=== PATIENT | male | born 1955 | race Caucasian/White ===

== ENCOUNTER 2021-07-16 15:20 | Observation (INO) | payer MEDICARE ==
[~2021-07-16] VITALS: Ht 182.9 cm; Wt 94.0 kg
--- NOTE | 2021-07-16 15:20 | NUR ---
PATIENT TO ROOM 6 VIA EMS BEDSIDE TRIAGE COMPLETED
[2021-07-16 15:49] LABS: HEMATOCRIT 39.6 % (39.0-50.0); HEMOGLOBIN 13.6 g/dl (14.0-18.0); IMMATURE GRANULOCYTES 0.3 % (0.0-5.0); MEAN CELL VOLUME 88.2 fL CALC (80.0-100.0); MEAN CORPUSCULAR HGB 30.3 pG CALC (26.0-32.0); MEAN CORPUSCULAR HGB CONC 34.3 g/dL CAL (32.0-36.0); NEUT# 4.15 thou/uL (1.82-7.42); RED BLOOD COUNT 4.49 mill/uL (4.70-6.10); RED CELL DISTRI WIDTH 12.6 % (11.5-15.5)
[2021-07-16 16:19] LABS: ALBUMIN 4.3 g/dL (3.2-5.0); ALKALINE PHOSPHATASE 54 u/l (38-126); AMYLASE 68 u/l (30-110); ANION GAP 19 (6-22 (CALC)); BILIRUBIN, TOTAL 1.1 mg/dL (0.0-1.4); BUN 21 mg/dL (8-23); BUN/CREATININE RATIO 20 (12-20 (CALC)); CARBON DIOXIDE 18 mmol/l (22-30); CHLORIDE 97 mmol/l (95-108); GFR > 60 ML/MIN (>=60 (CALC)); GFR FOR AFR.AMER. > 60 ML/MIN (>=60 (CALC)); POTASSIUM 2.8 mmol/l (3.5-5.1); SGOT/AST 38 u/l (19-48); SODIUM 132 mmol/l (137-146)
[2021-07-16 16:27] LABS: ACT PARTIAL THROMBO TIME 24.1 SECONDS (20.0-32.5); INTERNATIONAL NORMALIZED RATIO 0.9 RATIO (0.7-1.3); PROTHROMBIN TIME 9.9 SECONDS (9.0-12.5)
--- NOTE | 2021-07-16 17:59 | NUR ---
RESPS EVEN AND UNLABORED ON O2 VIA NC. MONITORS ATTACHED. DENIES NEEDS AT THIS TIME.
[2021-07-16] MEDS ORDERED: JANUMET1 TA1 PO (18:32)
[2021-07-16] MEDS ORDERED: ZYLOPRIM100 MG PO (18:33)
[2021-07-16] MEDS ORDERED: GLIMEPIRIDE2 MG PO (18:33)
[2021-07-16] MEDS ORDERED: ASPIRIN81 MG PO (18:35)
[2021-07-16] MEDS ORDERED: TOPROL XL50 MG PO (18:35)
[2021-07-16] MEDS ORDERED: MOBIC15 MG PO (18:35)
[2021-07-16] MEDS ORDERED: CRESTOR40 MG PO (18:36)
[2021-07-16] MEDS ORDERED: NORVASC PO (18:36)
[2021-07-16] MEDS ORDERED: B121000 MC1 PO (18:37)
[2021-07-16] MEDS ORDERED: AVAPRO150 MG PO (18:37)
[2021-07-16] MEDS ORDERED: VITAMIN C500 M1 PO (18:37)
[2021-07-16] MEDS ORDERED: VITAMIN D PO (18:38)
[2021-07-16] MEDS ORDERED: CHLORTHALIDONE25 MG PO (18:39)
--- NOTE | 2021-07-16 18:52 | NUR ---
REPORT GIVEN TO RUTH SCOTT
--- NOTE | 2021-07-16 19:00 | NUR ---
REPORT RECEIVED FROM TEA SCOTT. CARE ASSUMED OF PT.
--- NOTE | 2021-07-16 19:15 | NUR ---
IV ANTIBIOTICS INTIATED PER ORDER, PT TOLERATING WELL. DISCUSSED OF ADMISSION TO FLOOR, VERBALIZED UNDERSTANDING. DENIES ANY NEEDS. STREET SPRINKLER IN PLACE. CALL LIGHT WTIHIN REACH.
--- NOTE | 2021-07-16 19:40 | NUR ---
REPORT CALLED TO ANTONIETA SCOTT ON [facility]
--- NOTE | 2021-07-16 19:50 | NUR ---
Admission Note Report Given to: ANTONIETA RN Transported by: Wheelchair X Stretcher Transported with: X Nurse Transporter X Patent IV X O2 X Loom Checker Location: ICU X [facility] PT TRANSPORTED TO [facility] IN STABLE CONDITION ACCOMPANIED BY SWEATER AND PTS ID.
[2021-07-16 19:51] VITALS: BP 154/84
--- NOTE | 2021-07-16 20:30 | NUR ---
PATIENT ADMITTED FROM ER VIA STRETCHER WITH ER STAFF IN ATTENDANCE. PATIENT TRANSFERRED INTO BED. UNSTEADY ON HIS FEET. PATIENT ADMITTED FOR SYNCOPE, FALL AT HOME, COVID PNEUMONIA. PATIENT IS AWAKE ALERT AND ORIENTEDX3. PATIENT STATES THAT [place] IN [facility] BUT IS HERE BECAUSE HIS IS HERE CARING FOR HER ELDERLY MOTHER AND ALSO HAS COVID. PCP IS OUT OF TOWN. PATIENT STATES THAT HE IS A DIAB ON ORAL MEDS AT HOME. PATIENT WITH IV SITE TO RIGHT WRIST AND LAC. BOTH SITES ARE HEALTHY AT THIS TIME WITH GOOD BLOOD RETURN. TELE MONITOR IN PLACE WITH READING OF SR-81 AT THIS TIME. O2 VIA NASAL CANNULA IN PLACE WITH O2 AT 2LPM-O2 SAT IS 97%. LUNGS ARE DIMINISHED. NON-PRODUCTIVE COUGH NOTED. LAST BM WAS YESTERDAY 07/15/21. ABD IS SOFT WITH BS+. NO PERIPHERAL EDEMA NOTED WITH PULSES WEAK. DENIES ANY PROBLEM WITH URINATION. INSTRUCTED WE NEED A SPEC WHEN HE WAS ABLE TO PROVIDE. PROVIDED PATIENT WITH HEALTHY CHOICE TURKEY DINNER AND DIET COLA. ORIENTED PATIENT TO ROOM AND SURROIUNDINGS. INSTRUCTED ON USE OF NURSE CALL LIGHT SYSTEM, TV REMOTE ANBD PHONE. SAFETY PRECAUTIONS REINFORCED. CALL LIGHT IN REACH. WILL CONT TO MONITOR.
--- NOTE | 2021-07-16 21:43 | NUR ---
PATIENT RESTING IN BED-C/O LEFT SHOULDER PAIN-MEDICATED WITH TYLENOL 650MG PO FOR 5/10 PAIN SCALE. ACCU-CHECK WAS 232-MEDICATED PER [employer] PROTOCOL. STILL HASN'T VOIDED-INSTRUCTED THAT WE DO NEED URINE SPEC WHEN HE IS ABLE TO PROVIDE. SAFETY PRECAUTIONS REINFORCED. CALL LIGHT IN REACH. WILL CONT TO MONITOR.
[2021-07-16 23:54] LABS: URINE BILIRUBIN - DIPSTICK NEGATIVE (NEGATIVE); URINE BLOOD DIPSTICK SMALL (NEGATIVE); URINE COLOR YELLOW; URINE GLUCOSE - DIPSTICK 250 mg/dL (NEGATIVE); URINE KETONE 40 mg/dL (NEGATIVE); URINE LEUK ESTERASE NEGATIVE (NEGATIVE); URINE PROTEIN - DIPSTICK 30 mg/dL (NEG-TRACE)
[2021-07-16 23:56] LABS: URINE NITRITE - DIPSTICK NEGATIVE (Negative)
[2021-07-17] VITALS: BP 118/62
[2021-07-17 00:07] LABS: URINE SQUAMOUS EPITHELIAL CELL FEW EPI/hpf (0-FEW); URINE WBC 0-2 WBC/hpf (0-5)
--- NOTE | 2021-07-17 00:08 | NUR ---
PATIENT RESTING IN BED. VOIDED DARK MARKUS URINE AND URINE SPEC WAS OBTAINED AND SENT TO LAB. O2 VIA NASAL CANNULA IN PLACE. TELE MONITOR IN PLACE-LAST READING WAS SR-64. CALL LIGHT IN REACH. WILL CONT TO MONITOR.
[2021-07-17 04:00] VITALS: BP 156/99
--- NOTE | 2021-07-17 04:34 | NUR ---
PATIENT RESTING IN BED AT THIS TIME. EYES ARE CLOSED AND RESPS ARE EVEN AND UNLABVORED. O2 VIA NASAL CANNULA IN PLACE AT 2LPM. TELE MONITOR IN PLACE. CALL LIGHT IN REACH. WILL CONT TO MONITOR.
[2021-07-17 05:53] LABS: HEMATOCRIT 37.6 % (39.0-50.0); HEMOGLOBIN 13.4 g/dl (14.0-18.0); IMMATURE GRANULOCYTES 0.2 % (0.0-5.0); MEAN CELL VOLUME 86.8 fL CALC (80.0-100.0); MEAN CORPUSCULAR HGB 30.9 pG CALC (26.0-32.0); MEAN CORPUSCULAR HGB CONC 35.6 g/dL CAL (32.0-36.0); NEUT# 3.05 thou/uL (1.82-7.42); RED BLOOD COUNT 4.33 mill/uL (4.70-6.10); RED CELL DISTRI WIDTH 12.6 % (11.5-15.5)
[2021-07-17 06:22] LABS: ALBUMIN 3.9 g/dL (3.2-5.0); ALKALINE PHOSPHATASE 55 u/l (38-126); BILIRUBIN, TOTAL 0.8 mg/dL (0.0-1.4); BUN 21 mg/dL (8-23); BUN/CREATININE RATIO 28 (12-20 (CALC)); C-REACTIVE PROTEIN 8.5 mg/dL (0-0.9); CARBON DIOXIDE 20 mmol/l (22-30); CHLORIDE 99 mmol/l (95-108); CREATININE 0.8 mg/dL (0.7-1.3); GFR > 60 ML/MIN (>=60 (CALC)); GFR FOR AFR.AMER. > 60 ML/MIN (>=60 (CALC)); SGOT/AST 32 u/l (19-48); SODIUM 132 mmol/l (137-146); TOTAL PROTEIN 7.1 g/dL (6.3-8.2)
[2021-07-17 06:27] LABS: ANION GAP 17 (6-22 (CALC)); POTASSIUM 3.5 mmol/l (3.5-5.1)
[2021-07-17 07:30] VITALS: BP 129/84
--- NOTE | 2021-07-17 07:30 | NUR ---
BEDSIDE REPORT RECEIVED AT CHANGE OF SHIFT. SITTING UP IN BED WATHCING TV. NO COMPLAINTS. ASSESSMENT PERFORMED. SCDS PLACED. TEACH AND TRAIN INCENTIVE SPIROMETRY USE. NO COMPLAINTS/DISTRESS AT THIS TIME WILL MONITOR.
[2021-07-17] MEDS ORDERED: KAPSPARGO SPRIN25 MG (08:46)
[2021-07-17] MEDS ORDERED: HYDROCODONE/ACE1 T12 (08:48)
[2021-07-17 10:30] VITALS: BP 121/74
--- NOTE | 2021-07-17 11:45 | NUR ---
ATTEMPTED WALK TEST. PT O2 SAT AT 97% WITH NO O2 FOR AT LEAST 30 MIN. GOT PATIENT UP TO WALK AND O2 SAT NOT WORKING, INSTRUCTED PT KEEP WALKING, GRABBED ANOTHER O2 SAT MONITOR FROM OUTSIDE PT DOOR AND TURNED AROUND PT HAD ALREADY GOTTEN BACK IN BED AND STATED HE COULDNT WALK D/T PAIN IN THE LEFT SHOULDER 05/28. STATED HE TAKES FLEXERIL AT HOME. Roni BAILEY NOTIFIED. WILL CONTINUE TO MONITOR.
--- NOTE | 2021-07-17 11:55 | NUR ---
PT REPORTED BM. PT UP TO BATHROOM BY SELF. O2 RECHECKED WHEN PT GOT BACK IN BED, 93%.
[2021-07-17] MEDS ORDERED: ZITHROMAX250 MG PO (14:45)
[2021-07-17] MEDS ORDERED: [UNRECOGNIZED DRUG - SUPPLY] (14:52)
[2021-07-17] MEDS ORDERED: DEXAMETHASON6 MG PO (14:52)
[2021-07-17] MEDS ORDERED: HUMALOG KW100 UNIT/M SC (14:52)
[2021-07-17 15:00] VITALS: BP 129/71
--- NOTE | 2021-07-17 15:56 | NUR ---
Discharge instructions given. Patient verbalizes understanding of same. Discharged in stable conditioN. All belongings sent with pt.BOTH PT IV REMAIN IN PT IS TO GET IV THERAPY. PT IN CARE OF GEMMA DHALIWAL.
== END 2021-07-17 15:53 | disposition home or self-care (01) ==
LOC: ED 15:20 → ED-I 18:23 → MS2 18:47 → ED 18:47 → MS2 18:47
PROVIDERS: ADMIT Hospitalist; ATTEND Hospitalist
DX: U07.1 COVID-19 (principal); J12.82 Pneumonia due to coronavirus disease 2019; R09.02 Hypoxemia; E87.6 Hypokalemia; E11.9 Type 2 diabetes mellitus without complications; I10 Essential (primary) hypertension; S09.90XA Unspecified injury of head, initial encounter; E78.5 Hyperlipidemia, unspecified; M10.9 Gout, unspecified; W18.30XA Fall on same level, unspecified, initial encounter; Z95.5 Presence of coronary angioplasty implant and graft; Z79.84 Long term (current) use of oral hypoglycemic drugs
CPT/HCPCS: Q9967

== ENCOUNTER 2021-07-31 09:33 | Observation (INO) | payer MEDICARE ==
[~2021-07-31] VITALS: Ht 182.9 cm; Wt 88.0 kg
[~2021-07-31 09:33] MED LIST: ASPIRIN81 MG PO; AVAPRO150 MG PO; B121000 MC1 PO; CHLORTHALIDONE25 MG PO; CRESTOR40 MG PO; DEXAMETHASON6 MG PO; GLIMEPIRIDE4 MG PO; HUMALOG KW100 UNIT/M SC; HYDROCODONE/ACE1 T12 PO; JANUMET1 TA1 PO; MOBIC15 MG PO; NORVASC PO; TOPROL XL25 M1 PO; TOPROL XL50 MG PO; VITAMIN C500 M1 PO; VITAMIN D PO; ZITHROMAX250 MG PO; ZYLOPRIM100 MG PO; [UNRECOGNIZED DRUG - SUPPLY]
[2021-07-31 11:18] LABS: HEMATOCRIT 41.5 % (39.0-50.0); HEMOGLOBIN 13.8 g/dl (14.0-18.0); IMMATURE GRANULOCYTES 0.2 % (0.0-5.0); MEAN CELL VOLUME 90.2 fL CALC (80.0-100.0); MEAN CORPUSCULAR HGB CONC 33.3 g/dL CAL (32.0-36.0); NEUT# 8.73 thou/uL (1.82-7.42); RED BLOOD COUNT 4.6 mill/uL (4.70-6.10); RED CELL DISTRI WIDTH 12.8 % (11.5-15.5)
[2021-07-31 11:39] LABS: ALBUMIN 3.5 g/dL (3.2-5.0); BILIRUBIN, TOTAL 1.1 mg/dL (0.0-1.4); CREATININE 1.5 mg/dL (0.7-1.3); POTASSIUM 3.8 mmol/l (3.5-5.1); TOTAL PROTEIN 6.6 g/dL (6.3-8.2)
[2021-07-31 12:12] LABS: URINE BILIRUBIN - DIPSTICK NEGATIVE (NEGATIVE); URINE BLOOD DIPSTICK SMALL (NEGATIVE); URINE COLOR YELLOW; URINE GLUCOSE - DIPSTICK NEGATIVE (NEGATIVE); URINE KETONE NEGATIVE (NEGATIVE); URINE LEUK ESTERASE NEGATIVE (NEGATIVE); URINE NITRITE - DIPSTICK NEGATIVE (Negative); URINE PH 5.5 (4.5-8.0); URINE PROTEIN - DIPSTICK 30 mg/dL (NEG-TRACE); URINE SPECIFIC GRAVITY >=1.030; URINE UROBILINOGEN - DIPSTICK 0.2 E.U./dL (0.2)
[2021-07-31 12:16] LABS: URINE MUCUS FEW hpf (NONE-FEW); URINE SQUAMOUS EPITHELIAL CELL MANY EPI/hpf (0-FEW); URINE WBC 0-2 WBC/hpf (0-5)
[2021-07-31 16:14] VITALS: BP 140/85
[2021-07-31 20:00] VITALS: BP 138/79
[2021-08-01 00:10] VITALS: BP 104/62
[2021-08-01 04:00] VITALS: BP 102/70
[2021-08-01 05:28] LABS: HEMATOCRIT 35.6 % (39.0-50.0); HEMOGLOBIN 11.9 g/dl (14.0-18.0); MEAN CELL VOLUME 90.6 fL CALC (80.0-100.0); MEAN CORPUSCULAR HGB 30.3 pG CALC (26.0-32.0); MEAN CORPUSCULAR HGB CONC 33.4 g/dL CAL (32.0-36.0); RED BLOOD COUNT 3.93 mill/uL (4.70-6.10); RED CELL DISTRI WIDTH 12.9 % (11.5-15.5)
[2021-08-01 05:35] LABS: ANION GAP 10 (6-22 (CALC)); BUN 31 mg/dL (8-23); BUN/CREATININE RATIO 26 (12-20 (CALC)); CARBON DIOXIDE 24 mmol/l (22-30); CHLORIDE 107 mmol/l (95-108); CREATININE 1.2 mg/dL (0.7-1.3); GFR 60 ML/MIN (>=60 (CALC)); GFR FOR AFR.AMER. > 60 ML/MIN (>=60 (CALC)); MAGNESIUM 1.1 mg/dL (1.6-2.3); POTASSIUM 3.2 mmol/l (3.5-5.1); SODIUM 138 mmol/l (137-146)
[2021-08-01 08:33] VITALS: BP 139/80
[2021-08-01] MEDS ORDERED: MAGNESIUM OXID400 M1 PO (13:21)
[2021-08-01 14:59] VITALS: BP 111/68
== END 2021-08-01 16:40 | disposition home health service (06) ==
LOC: ED 09:33 → ED-I 13:30 → MS2 13:39 → ED 13:39 → MS2 08-01 16:40
PROVIDERS: Family Medicine; Nurse Practitioner; ADMIT Hospitalist; ATTEND Hospitalist
DX: E86.0 Dehydration (principal); N28.9 Disorder of kidney and ureter, unspecified; I95.1 Orthostatic hypotension; E83.42 Hypomagnesemia; I10 Essential (primary) hypertension; E11.9 Type 2 diabetes mellitus without complications; M54.2 Cervicalgia; G89.29 Other chronic pain; M10.9 Gout, unspecified; E78.5 Hyperlipidemia, unspecified; I25.2 Old myocardial infarction; F17.200 Nicotine dependence, unspecified, uncomplicated; Z86.16 Personal history of COVID-19; Z95.5 Presence of coronary angioplasty implant and graft; Z79.4 Long term (current) use of insulin; Z79.84 Long term (current) use of oral hypoglycemic drugs; Z87.81 Personal history of (healed) traumatic fracture; Z20.822 Contact with and (suspected) exposure to COVID-19
CPT/HCPCS: G0378; J3475